=== PATIENT | male | born 1990 | race Caucasian/White ===

== ENCOUNTER 2023-03-05 17:05 | Emergency (ER) | payer OTHER, SELFPAY ==
[2023-03-05 17:15] VITALS: BP 144/67; PULSE 72; RESP 18; TEMP 36.9; O2SAT 100; BMI 26.7
--- NOTE | 2023-03-05 17:19 | DI.RAD.S_ITS ---
PROCEDURE: XR TOE RT MIN 2V INDICATIONS: Injury TECHNIQUE: 3 views of the right 4th toe(s) acquired. COMPARISON: None. FINDINGS: Bones: Fracture of the proximal phalanx of the 4th toe. No suspicious bony lesions. Soft tissues: No suspicious soft tissue densities. IMPRESSION: Fracture of the proximal phalanx of the 4th toe. Dictated by: Oscar Jacobson M.D. on 03/05/2023 at 17:32 Approved by: Oscar Jacobson M.D. on 03/05/2023 at 17:34
--- NOTE | 2023-03-05 19:22 | ED.LOWEXIN ---
HPI - Extremity Injury (Lower) General Chief Complaint: Extremity Injury, Lower Stated Complaint: rt 4th toe injury Time Seen by Provider: 03/05/23 19:22 Source: patient Mode of arrival: Ambulatory History of Present Illness HPI Narrative: Patient is a healthy 32-year-old male who presents today with right 4th toe injury. States that he was wrestling with friends in the water he came out and toe was bent backwards. He is able to ambulate on it no other injuries. Related Data Allergies Allergy/AdvReac Type Severity Reaction Status Date / Time Hay Fever Allergy Uncoded 03/05/23 17:15 Review of Systems Review of Systems ROS Unobtainable: All systems reviewed & are unremarkable except as noted in HPI and below Exam Initial Vital Signs Initial Vital Signs: Vital Signs Temperature 98.5 F 03/05/23 17:15 Pulse Rate 72 03/05/23 17:15 Respiratory Rate 18 03/05/23 17:15 Blood Pressure 144/67 H 03/05/23 17:15 Pulse Oximetry 100 03/05/23 17:15 Oxygen Delivery Method Room Air 03/05/23 17:15 GENERAL: Well-appearing, well-nourished and in no acute distress. CARDIOVASCULAR: peripheral pulses in tact, cap refill <2 sec RESPIRATORY: No respiratory distress, speaks in full sentences without difficulty [ABDOMEN: Soft, nontender, no guarding or rebound] EXTREMITIES: Normal range of motion, no clubbing or edema. Neurovascularly intact Right 4th toe contusion at the proximal phalanx NEUROLOGICAL: Cranial nerves II through XII grossly intact. Normal gait and speech. SKIN: Warm, dry, no petechiae, no rashes or lesions. Course Orders Ordered: ED Orders 03/05/23 17:19 XR toe RT min 2V Stat Vital Signs Vital signs: Vital Signs - 8 hr 03/05/23 17:15 Temperature 98.5 F Pulse Rate 72 Respiratory Rate 18 Blood Pressure 144/67 H Pulse Oximetry 100 Oxygen Delivery Method Room Air MDM - Extremity Injury (Lower) Imaging Data Extremity x-ray #1: Radiologist's Impression: PROCEDURE:? XR TOE RT MIN 2V INDICATIONS:? Injury ? TECHNIQUE:? 3 views of the right 4th toe(s) acquired.? ? COMPARISON:? None. ? FINDINGS:? ? Bones:? Fracture of the proximal phalanx of the 4th toe.? No suspicious bony lesions.? ? Soft tissues:? No suspicious soft tissue densities.? ? IMPRESSION:? Fracture of the proximal phalanx of the 4th toe. ? ? Dictated by: Oscar Jacobson M.D. on 03/05/2023 at 17:32 ?? MDM Narrative Medical decision making narrative: Healthy 32-year-old male presenting today with 4th toe injury. X-ray confirms a proximal phalanx fracture. Offered steffi-tape an orthopedic shoe. At this time he will steffi-tape. He is ambulatory in the ED. neurovascularly intact no need for further workup Discharge Plan Departure Patient Disposition: Home Clinical Impression: Closed fracture of fourth toe of right foot Instructions: DI for Toe Fracture Activity Restrictions/Additional Instructions: *You have been diagnosed with right 4th toe fracture *What to do: This will take 4-6 weeks to heal. Elevate and ice as needed. Wear supportive shoes. You may steffi-tape it. *Continue to take medications as directed Motrin 600 mg every 6 hours Tylenol 1000 mg every 6 hours if needed *Follow up with your primary care provider in 2-3 days or call [phone] *Return to ER if you should have increased pain swelling numbness or any new, worsening or concerning symptoms Stand Alone Forms: Patient Portal/API
[2023-03-05 19:36] VITALS: PULSE 70
== END 2023-03-05 19:30 | disposition home or self-care (01) ==
PROVIDERS: Emergency Provider Emergency Medicine
DX: S92.511A Displaced fracture of proximal phalanx of right lesser toe(s), initial encounter for closed fracture (principal); Y93.72 Activity, wrestling; X58.XXXA Exposure to other specified factors, initial encounter
CPT/HCPCS: 73660; 99282; 99283